=== PATIENT | female | born 1985 | race Caucasian/White ===

== ENCOUNTER 2018-06-21 22:03 | Emergency (ER) | payer MEDICAID, SELFPAY ==
[2018-06-21 22:04] VITALS: BP 122/77; PULSE 79; RESP 16; TEMP 37.2; O2SAT 97; BMI 24.3
--- NOTE | 2018-06-21 22:43 | ED.VISSUMM ---
- ER Visit Summary Date of Service: 06/21/18 Chief Complaint: Leg wound History of Present Illness: The patient is a 32 F with a left leg wound. This has been a chronic issue. She has previously seen wound care and has an upcoming appointment, but she presents today for increasing pain and warmth to the area. She also reports some drainage. Denies fevers or systemic symptoms. Physical Examination: Patient has a superficial ulceration to her left medial lower leg just proximal to the malleolus. 6 cm in diameter. The area is crusted over. There is mild drainage of pus. I do not appreciate any surrounding erythema. She is neurovascular intact distally. Test Results: Xray showed no osseous abnormality Emergency Department Course and Treatment: Patient has a superficial leg ulceration. This has been an ongoing issue. It seems to be getting worse. Will check an x-ray. She has an upcoming appointment with wound care. I will start her on antibiotics and Motrin. She will follow-up. Risks such as osteomyelitis and sepsis were discussed. Patient will return for any new or worsening issues. Treatment Plan: As above Disposition: Discharge Impression: 1. Left leg wound This note was generated with [employer] dictation software. It may contain incorrect words, spelling, and punctuation that were not noted in review of the chart prior to signing ED Disposition - Plan for ED Patient: Disposition: Home or Assisted Living Chief Complaint: Lower Extremity Injury Instructions: Wound Care Prescriptions: Cephalexin [Keflex] 500 mg PO Q6 #28 cap Ibuprofen [Motrin] 800 mg PO TID PRN PRN #20 tab PRN Reason: Pain Smz/Tmp Ds [Bactrim Ds] 1 tab PO BID #14 tab Additional Instructions: Follow-up with wound care center
--- NOTE | 2018-06-21 22:48 | ED.DCSUM_ITS ---
- ER Visit Summary Date of Service: 06/21/18 Chief Complaint: Leg wound History of Present Illness: The patient is a 32 F with a left leg wound. This has been a chronic issue. She has previously seen wound care and has an upcoming appointment, but she presents today for increasing pain and warmth to the area. She also reports some drainage. Denies fevers or systemic symptoms. Physical Examination: Patient has a superficial ulceration to her left medial lower leg just proximal to the malleolus. 6 cm in diameter. The area is crusted over. There is mild drainage of pus. I do not appreciate any surrounding erythema. She is neurovascular intact distally. Test Results: Xray showed no osseous abnormality Emergency Department Course and Treatment: Patient has a superficial leg ulceration. This has been an ongoing issue. It seems to be getting worse. Will check an x-ray. She has an upcoming appointment with wound care. I will start her on antibiotics and Motrin. She will follow-up. Risks such as oste omyelitis and sepsis were discussed. Patient will return for any new or worsening issues. Treatment Plan: As above Disposition: Discharge Impression: 1. Left leg wound This note was generated with [employer] dictation software. It may contain incorrect words, spelling, and punctuation that were not noted in review of the chart prio r to signing ED Disposition - Plan for ED Patient: Disposition: Home or Assisted Living Chief Complaint: Lower Extremity Injury Instructions: Wound Care Prescriptions: Cephalexin [Keflex] 500 mg PO Q6 #28 cap Ibuprofen [Motrin] 800 mg PO TID PRN PRN #20 tab PRN Reason: Pain Smz/Tmp Ds [Bactrim Ds] 1 tab PO BID #14 tab Additional Instructions: Follow-up with wound care center
[2018-06-21] MEDS: Cephalexin 250 MG Capsule 500 MG PO (22:50)
[2018-06-21] MEDS: Ibuprofen 600 MG Tablet PO (22:50)
[2018-06-21] MEDS: Smz/Tmp Ds Tablet 1 TABLET PO (22:50)
--- NOTE | 2018-06-21 22:50 | RAD_ITS ---
STUDY: X-RAY - LEFT ANKLE REASON FOR EXAM: Female, 32 years old. OPEN WOUND LEFT ANKLE MEDIALLY. HAS BEEN THERE FOR A WHILE TECHNIQUE: 3 view(s) of the ankle. COMPARISON: None. FINDINGS: Normal visualized distal tibia and fibula. Normal medial and lateral malleoli. Normal tibiotalar articulation and ankle mortise. Normal visualized talus and calcaneus. The visualized subtalar, talonavicular, calcaneocuboid and tarsal articulations are normal. Soft tissue ulceration visualized overlying the medial malleolus. There is no underlying osseous abnormality. RAD/Ankle min 3 Views IMPRESSION: Soft tissue ulceration visualized overlying the medial malleolus. There is no underlying osseous abnormality. Electronically Signed: Luciano Benton MD at 23:03 EDT , Service support ,
--- NOTE | 2018-06-21 23:02 | ED.DEP ---
ED Disposition - Plan for ED Patient: Chief Complaint: Lower Extremity Injury Instructions: Wound Care Prescriptions: Cephalexin [Keflex] 500 mg PO Q6 #28 cap Ibuprofen [Motrin] 800 mg PO TID PRN PRN #20 tab PRN Reason: Pain Smz/Tmp Ds [Bactrim Ds] 1 tab PO BID #14 tab Additional Instructions: Follow-up with wound care center
== END 2018-06-21 23:16 | disposition home or self-care (01) ==
LOC: ED 22:35
PROVIDERS: Emergency Provider Emergency Medicine
DX: L97.829 Non-pressure chronic ulcer of other part of left lower leg with unspecified severity (principal); Z86.718 Personal history of other venous thrombosis and embolism; Z79.01 Long term (current) use of anticoagulants; Z72.0 Tobacco use
CPT/HCPCS: 73610; 99283

== ENCOUNTER → 2021-03-17 11:55 | Outpatient (CLI) | payer SELFPAY ==
[2021-03-06 20:00] VITALS: BMI 23.5
[2021-03-17 12:06] LABS: Hematocrit 45.4 % (37-47); Hemoglobin 14.8 g/dL (12.0-15.0); Mean Corp Hgb Conc 32.6 g/dL (32-36); Mean Corpuscular Volume 85.8 fL (81-99); Mean Platelet Vol. 10.1 fl (6.2-12.0); Platelet Count 287 K/mm3 (150-450); RBC Distribution Width CV 15.4 % (11.6-14.6); RBC Distribution Width SD 48.2 fl (35.1-43.9); Red Blood Count 5.29 M/mm3 (4.2-5.4); White Blood Count 9.1 K/mm3 (4.4-11.0)
[2021-03-17 12:20] LABS: D-Dimer Quantitative (DVT/PE) 0.44 FEU/ug/m (0.27-0.49)
== END ==
LOC: LABSPEC 11:59
PROVIDERS: Visit Provider Registered Nurse
DX: R07.9 Chest pain, unspecified (principal); Z86.718 Personal history of other venous thrombosis and embolism
CPT/HCPCS: 85027; 85379

== ENCOUNTER 2024-03-01 19:31 | Emergency (ER) | payer MEDICAID, SELFPAY ==
[2024-03-01 19:31] VITALS: BP 119/78; PULSE 75; RESP 17; TEMP 36.9; O2SAT 98; BMI 21.9
--- NOTE | 2024-03-01 19:44 | EKG12_ITS ---
Test Reason : CP Blood Pressure : / mmHG Vent. Rate : 076 BPM Atrial Rate : 076 BPM P-R Int : 128 ms QRS Dur : 070 ms QT Int : 390 ms P-R-T Axes : 061 067 050 degrees QTc Int : 438 ms Normal sinus rhythm Normal ECG Confirmed by ROBERT JOSEPH, CARMEN ([id number]), book or script editor DANIEL SALES ([id number]) on 03/04/2024 10:47:42 AM Referred By: Confirmed By:CARMEN JONES MD
--- NOTE | 2024-03-01 19:47 | EX.ED.DYSGE1 ---
HPI <ANDREA Lucero - Last Filed: 03/01/24 21:28> History of Present Illness Chief Complaint: Chest Pain Narrative Narrative: Patient is a 38-year-old female with history of DVTs, vascular disease, who uses nicotine presenting to the emergency department with 30 to 40 minutes of midsternal chest pain, chest pressure and shortness of breath. Patient states she was sitting happy birthday for her daughter, getting ready to cut the cake when this all started. Patient states that she is currently not on any Lovenox, she has been off Lovenox for 4 months. She does see the wound care management here. Patient denies any recent long car rides greater than 4 hours, denies any recent air travel, [place] any recent surgeries. PFS <ANDREA Lucero - Last Filed: 03/01/24 21:28> [facility] Medical History DVT (deep venous thrombosis) Home Medications ?Medication ?Instructions ?Recorded ?Last Taken ?Type NK 03/01/24 Unknown History Allergy/AdvReac Type Severity Reaction Status Date / Time warfarin sodium (From Allergy Swelling Verified 03/01/24 19:34 Coumadin) Social History (Updated 03/22/21 @ 15:[address] Pilo Ureña, DO) Smoking Status: Current every day smoker tobacco type: cigarettes and e-cigarettes substance use type: does not use ROS <ANDREA Lucero - Last Filed: 03/01/24 21:28> ROS ED ROS Narrative Constitutional: Negative for fever, chills, weight loss, weakness Eyes: Negative for vision loss, vision change, double vision ENT: Negative for any sore throat, ear pain, congestion Cardiovascular: Negative for any palpitations. Positive chest pain, tightness Respiratory: Negative for any cough, sputum production, hemoptysis, dyspnea, dyspnea on exertion, orthopnea Gastrointestinal: Negative for any abdominal pain, nausea, vomiting, diarrhea, constipation, blood in stool, blood in vomit : Negative for any urinary frequency, dysuria, retention, blood in urine Muscle skeletal: Negative for any neck pain, back pain Neurological: Negative for any headache, syncope, dizziness Skin: Negative for any rashes, itching, abrasions, lacerations Psychiatric: Negative for any depression, anxiety, stress, suicidal ideation, homicidal ideation Hematologic: Negative for any excessive bruising, easy bleeding EXAM <ANDREA Lucero - Last Filed: 03/01/24 21:28> Physical Exam Narrative Exam Narrative: Vital signs reviewed. HEET: Head normocephalic atraumatic, TMs clear bilaterally. Posterior pharynx is clear, moist mucous membranes. Nares clear bilaterally. Neck: Supple with no lymphadenopathy or tenderness. No signs of meningismus. Cardiac: Regular rate and rhythm no murmurs gallops or rubs, equal peripheral pulses bilaterally. Respiratory: Lungs clear to auscultation bilaterally. No chest tenderness. Abdomen: Soft, nontender, nondistended. No abdominal bruit or pulsatile masses. No hepatosplenomegaly Extremities: No peripheral edema, no signs of gross trauma or deformity. Active full range of motion of all extremities. Patient does have a wound that appears chronic just above the medial malleolus Neuro: Cranial nerves II through XII intact, no focal neurological deficits. Skin: Clean dry and intact with no rash, purpura, petechiae, vesicles or pustules. Backs/flank: No CVA tenderness, no midline spinal tenderness, no deformity. Psych: Normal mood and affect. No SI, HI or acute psychosis. Const Vital Signs: 03/01/24 19:31 03/01/24 19:44 03/01/24 20:31 Temperature 98.4 F Temperature Source Oral Pulse Rate 75 58 L Respiratory Rate 17 16 Respiratory Effort Normal Non-Labored Blood Pressure 119/78 110/63 Blood Pressure Mean 91 78 Pulse Ox 98 98 Oxygen Delivery Method Room Air Room Air 03/01/24 20:45 03/01/24 21:00 03/01/24 21:32 Temperature 97 F L Temperature Source Pulse Rate 61 78 Respiratory Rate 14 16 Respiratory Effort Blood Pressure 103/74 103/74 Blood Pressure Mean 83 83 Pulse Ox 99 98 98 Oxygen Delivery Method Room Air Room Air <Dr. Fuad Guidry DO - Last Filed: 03/01/24 23:04> Physical Exam Const Vital Signs: 03/01/24 19:31 03/01/24 19:44 03/01/24 20:31 Temperature 98.4 F Temperature Source Oral Pulse Rate 75 58 L Respiratory Rate 17 16 Respiratory Effort Normal Non-Labored Blood Pressure 119/78 110/63 Blood Pressure Mean 91 78 Pulse Ox 98 98 Oxygen Delivery Method Room Air Room Air 03/01/24 20:45 03/01/24 21:00 03/01/24 21:32 Temperature 97 F L Temperature Source Pulse Rate 61 78 Respiratory Rate 14 16 Respiratory Effort Blood Pressure 103/74 103/74 Blood Pressure Mean 83 83 Pulse Ox 99 98 98 Oxygen Delivery Method Room Air Room Air [facility] <ANDREA Lucero - Last Filed: 03/01/24 21:28> [facility] Lab Data Labs: Laboratory Results - last 24 hr 03/01/24 19:40 WBC 10.0 RBC 4.53 Hgb 12.8 Hct 38.9 MCV 85.9 MCH 28.3 MCHC 32.9 RDW Std Deviation 45.4 H RDW Coeff of Stephenie 14.6 Plt Count 313 MPV 9.5 Immature Gran % (Auto) 0.300 Neut % (Auto) 63.5 Lymph % (Auto) 26.3 [place] % (Auto) 7.5 Eos % (Auto) 1.8 Baso % (Auto) 0.6 Absolute Neuts (auto) 6.3 Absolute Lymphs (auto) 2.62 Nucleated RBC % 0 PT 13.3 INR 1.0 D-Dimer Quant (PE/DVT) 0.35 Sodium 136 Potassium 4.3 Chloride 105 Carbon Dioxide 25.0 Anion Gap 6 BUN 13 Creatinine 0.95 Estim Creat Clear Calc 80.20 Est GFR (MDRD) Af Amer 84 Est GFR (MDRD) Non-Af 69 BUN/Creatinine Ratio 13.7 Glucose 93 Calcium 9.4 Troponin I High Sens < 3 L B-Natriuretic Peptide 17.5 Radiography Diagnostic Testing: Clinical Impression(s) from Imaging Studies Chest X-Ray 03/01/24 19:53 IMPRESSION: No radiographic evidence of acute cardiopulmonary disease. Electronically Signed: Lionel Beckford DO at 20:22 EDT , EKG Normal sinus rhythm rate of 76: Attestation: I personally reviewed and interpreted this EKG as follows: Interpretation: Sinus Rhythm Comments: Normal sinus rhythm, rate of 76 bpm, ME interval 128 ms, QRS duration 70 ms, no acute ST elevation, no acute infarct noted. Treatment and Re-Evaluation :: Differential diagnosis includes however is not limited to: ACS, NC, anxiety, muscle skeletal chest pain, PE, pneumonia Patient appears to be in no obvious distress vital signs are stable. Patient presents to the emergency department with sudden onset of chest pain, palpitations, tightness. Patient's EKG was unremarkable. Patient is currently not taking any blood thinners. Patient looks nontoxic. Patient will receive a full cardiac workup including troponins, BNP, two-view chest x-ray, basic laboratory values. Patient will be given 324 baby aspirin. All radiologic examinations were read, reviewed by the emergency department attending. From these reads, a plan of care will be put in place. Patient be given 1 L normal saline. Patient will be reevaluated. Patient on reevaluation was feeling better. Patient's chest x-ray was negative for any radiographic evidence of acute cardiopulmonary disease. Patient's laboratory values showed normal CBC, patient's PT/INR was within normal limits, PT was 13.3 with an INR 1.0. D-dimer was 0.35 this is negative. Patient's chemistries were unremarkable, troponin was less than 3. According to the algorithm here with our cardiology group, this is negative and we do not need a second troponin. Patient will be discharged home. At this time, is no evidence of any ACS, NC, pulmonary embolus. Patient states she is feeling better now that she is resting. Patient be discharged home and follow-up outpatient. Patient stable for discharge. <Dr. Fuad Guidry, DO - Last Filed: 03/01/24 23:04> [facility] Lab Data Attestation: I reviewed the patient's lab results. Labs: Laboratory Results - last 24 hr 03/01/24 19:40 WBC 10.0 RBC 4.53 Hgb 12.8 Hct 38.9 MCV 85.9 MCH 28.3 MCHC 32.9 RDW Std Deviation 45.4 H RDW Coeff of Stephenie 14.6 Plt Count 313 MPV 9.5 Immature Gran % (Auto) 0.300 Neut % (Auto) 63.5 Lymph % (Auto) 26.3 [place] % (Auto) 7.5 Eos % (Auto) 1.8 Baso % (Auto) 0.6 Absolute Neuts (auto) 6.3 Absolute Lymphs (auto) 2.62 Nucleated RBC % 0 PT 13.3 INR 1.0 D-Dimer Quant (PE/DVT) 0.35 Sodium 136 Potassium 4.3 Chloride 105 Carbon Dioxide 25.0 Anion Gap 6 BUN 13 Creatinine 0.95 Estim Creat Clear Calc 80.20 Est GFR (MDRD) Af Amer 84 Est GFR (MDRD) Non-Af 69 BUN/Creatinine Ratio 13.7 Glucose 93 Calcium 9.4 Troponin I High Sens < 3 L B-Natriuretic Peptide 17.5 Radiography Diagnostic Testing: Clinical Impression(s) from Imaging Studies Chest X-Ray 03/01/24 19:53 IMPRESSION: No radiographic evidence of acute cardiopulmonary disease. Electronically Signed: Lionel Beckford DO at 20:22 EDT Reading Location ID and State: [facility] / [place] Tel [phone], Service support , Treatment and Re-Evaluation :: Differential diagnosis includes however is not limited to: ACS, NC, anxiety, muscle skeletal chest pain, PE, pneumonia Patient appears to be in no obvious distress vital signs are stable. Patient presents to the emergency department with sudden onset of chest pain, palpitations, tightness. Patient's EKG was unremarkable. Patient is currently not taking any blood thinners. Patient looks nontoxic. Patient will receive a full cardiac workup including troponins, BNP, two-view chest x-ray, basic laboratory values. Patient will be given 324 baby aspirin. All radiologic examinations were read, reviewed by the emergency department attending. From these reads, a plan of care will be put in place. Patient be given 1 L normal saline. Patient will be reevaluated. Patient on reevaluation was feeling better. Patient's chest x-ray was negative for any radiographic evidence of acute cardiopulmonary disease. Patient's laboratory values showed normal CBC, patient's PT/INR was within normal limits, PT was 13.3 with an INR 1.0. D-dimer was 0.35 this is negative. Patient's chemistries were unremarkable, troponin was less than 3. According to the algorithm here with our cardiology group, this is negative and we do not need a second troponin. Patient will be discharged home. At this time, is no evidence of any ACS, NC, pulmonary embolus. Patient states she is feeling better now that she is resting. Patient be discharged home and follow-up outpatient. Patient stable for discharge. Attending note: Patient seen and evaluated with luncheonette manager. I perform my own [id number] evaluation. I agree with the plan of work-up. Chest pressure with pain with deep breath 30 minutes prior to arrival. No radicular pain no nausea no diaphoresis. History of DVT with an IVC filter in 2009. No recent travel or surgeries. No history of PE. She EKG sinus rhythm no acute findings. Cardiac workup initiated troponin less than 3 negative for ACS per algorithm. D-dimer negative therefore lower concern for PE risk. Clinically is feeling better on reevaluation. She discharged outpatient follow-up with return precautions. Discharge Plan Triage Chief Complaint: Chest Pain ED Midlevel Provider: Durga Baxter ED Provider: Fuad Guidry/Rx/DC Orders Clinical Impression: Chest pain Instructions: ED Chest Pain, Noncardiac, ED Chest Pain, Uncertain Cause Prescriptions: No Action NK Primary Care Provider: Care Physician,No Primary Referrals: Todd Lopez MD [Med Staff - Active Staff] - Care Physician,No Primary [Primary Care Provider] - Activity Restrictions/Additional Instructions: Please follow-up outpatient. Return for any worsening symptoms. Print Language: Azerbaijani Disposition Disposition: Home, Self Care Discharge Date/Time: 03/01/24 21:39
[2024-03-01] MEDS: Aspirin 81 MG TAB.CHEW 324 MG PO (19:53)
[2024-03-01] MEDS: 0.9% Normal Saline (1000mL) 1,000 ML 999 ML IV (19:53)
--- NOTE | 2024-03-01 19:53 | RAD_ITS ---
INDICATION: chest pain EXAMINATION/TECHNIQUE: X-RAY - XR Chest 2 Views COMPARISON: March 22, 2021 FINDINGS: LINES/DEVICES: None. LUNGS: No consolidation, edema or effusion. No pneumothorax. MEDIASTINUM AND CARDIOVASCULAR STRUCTURES: Cardiac silhouette not enlarged. Central airways and mediastinal contour are unremarkable. BONES AND SOFT TISSUES: Unremarkable. RAD/Chest PA and Lateral IMPRESSION: No radiographic evidence of acute cardiopulmonary disease. Electronically Signed: Lionel Beckford DO at 20:22 EDT ,
[2024-03-01 19:57] LABS: Absolute Lymphocyte Count 2.62 X10^3/uL (0.83-4.51); Absolute Neutrophil Count 6.3 X10^3/uL (2.0-7.7); Basophil# 0.06 X10^3/uL; Basophil% 0.6 % (0-1); Eosinophil# 0.18 X10^3/uL; Eosinophils% 1.8 % (0-5); Hematocrit 38.9 % (37-47); Hemoglobin 12.8 g/dL (12.0-15.0); Lymphocyte # 2.62 X10^3/ul (0.83-4.51); Lymphocyte % 26.3 % (19-41); Mean Corp Hgb Conc 32.9 g/dL (32-36); Mean Corpuscular Hgb 28.3 pg (27.0-32.0); Mean Corpuscular Volume 85.9 fL (81-99); Mean Platelet Vol. 9.5 fl (6.2-12.0); Monocyte# 0.75 X10^3/uL; Monocyte% 7.5 % (0-10); NRBC Flagged by Analyzer 0 % (0-5); Neutrophil # 6.31 X10^3/uL (2.7-7.7); Neutrophil % 63.5 % (47-70); Platelet Count 313 K/mm3 (150-450); RBC Distribution Width CV 14.6 % (11.6-14.6); RBC Distribution Width SD 45.4 fl (35.1-43.9); Red Blood Count 4.53 M/mm3 (4.2-5.4)
[2024-03-01 20:16] LABS: Prothrombin Time (Protime)PT. 13.3 SECONDS (11.7-14.9)
[2024-03-01 20:31] VITALS: BP 110/63; PULSE 58; RESP 16; O2SAT 98
[2024-03-01 20:31] LABS: BNP,B-Type NATRIURETIC PEPTIDE 17.5 pg/mL (0-100)
[2024-03-01 20:45] VITALS: O2SAT 99
[2024-03-01 20:51] LABS: D-Dimer Quantitative (DVT/PE) 0.35 FEU/ug/m (0.27-0.49)
[2024-03-01 20:57] LABS: Anion Gap 6 (5-15); BUN 13 mg/dL (7-18); BUN/Creat Ratio 13.7 RATIO (10-20); Calcium,Total 9.4 mg/dL (8.5-10.1); Chloride 105 mmol/L (98-107); Creatinine, Serum 0.95 mg/dL (0.55-1.02); EST Glomerular Filtration Rate 69 mL/min (>60); Est Glom Filt Rate - Afr Amer 84 mL/min (>60); Glucose 93 mg/dL (74-106); Potassium 4.3 mmol/L (3.5-5.1); Sodium Level 136 mmol/L (136-145); Troponin-I HS (w/2H Reflex) < 3 pg/mL (3.0-54.0)
[2024-03-01 21:00] VITALS: BP 103/74; PULSE 61; RESP 14; O2SAT 98
[2024-03-01 21:32] VITALS: BP 103/74; PULSE 78; RESP 16; TEMP 36.1; O2SAT 98
[2024-03-01 21:54] LABS: Reflex Troponin-HS? (from REC) Y
== END 2024-03-01 21:39 | disposition home or self-care (01) ==
PROVIDERS: Nurse Practitioner; Emergency Provider Emergency Medicine; Visit Provider Emergency Medicine
DX: R07.9 Chest pain, unspecified (principal); F17.210 Nicotine dependence, cigarettes, uncomplicated; F17.290 Nicotine dependence, other tobacco product, uncomplicated
CPT/HCPCS: 71046; 80048; 83880; 84484; 85025; 85379; 85610; 93005; 96360; 96361; 99284; J7030; A4216